=== PATIENT | male | born 1970 | race Caucasian/White ===

== ENCOUNTER 2023-06-28 12:24 | Emergency (ER) | payer OTHER ==
--- NOTE | 2023-06-28 12:25 | ERPHSYRPT ---
- History of Present Illness Time Seen by Provider: 06/28/23 12:40 Historian: patient, family Exam Limitations: no limitations Physician History: This is an obese 53-year-old white male patient who has no documented coronary artery disease but does have a history of hypertension and was seen by orthopedic services approximately 5 days ago for drainage of fluid from a knee and in fusion of steroid medication. In the days following, the patient did feel little flushed and noticed some sweating. A few days ago he noticed some left chest pressure. It is localized and nonradiating.. It resolved on its own. However in the last couple of days, it has been more frequent and today more constant. He states it is not a pain. He does not have associated shortness of breath. The steroid injection is new to him. He was also placed on meloxicam and this is a new medication for him as well. He denies fever. He denies cough. He has no abdominal pain Activities at Onset: none Quality: pressure (Left anterior chest) Location: other Chest Pain Radiation: no radiation (Left anterior chest) Severity of Pain-Max: mild Severity of Pain-Current: mild Modifying Factors: Improves With: nothing Associated Symptoms: denies symptoms Prior Chest Pain/Cardiac Workup: no prior chest pain Nitro Today/Relief: no nitro taken today Aspirin Treatment Today: no aspirin today Allergies/Adverse Reactions: No Known Drug Allergies Allergy (Verified 06/28/23 12:37) Home Medications: Lisinopril/Hydrochlorothiazide [Lisinopril-Hctz 20-12.5 mg Tab] 1 tab PO DAILY 06/28/23 [History] Meloxicam 15 mg [Meloxicam 15 MG] 15 mg PO DAILY 06/28/23 [History] Hx Tetanus, Diphtheria Vaccination/Date Given: Yes (2006) Hx Influenza Vaccination/Date Given: No Hx Pneumococcal Vaccination/Date Given: No Travel Risk - International Travel Have you traveled outside of the country in past 3 weeks: No - Coronavirus Screening Are you exhibiting any of the following symptoms?: No Close contact with a COVID-19 positive Pt in past 14-21 Days: No - Review of Systems Constitutional: No Symptoms Eyes: No Symptoms Ears, Nose, & Throat: No Symptoms Respiratory: No Symptoms Cardiac: Chest Pain (Left anterior chest pressure) Abdominal/Gastrointestinal: No Symptoms Genitourinary Symptoms: No Symptoms Musculoskeletal: No Symptoms Skin: No Symptoms Neurological: No Symptoms Psychological: No Symptoms Endocrine: No Symptoms Hematologic/Lymphatic: No Symptoms Immunological/Allergic: No Symptoms All Other Systems: Reviewed and Negative - Past Medical History Pertinent Past Medical History: No - Past Surgical History Past Surgical History: Yes Musculoskeletal: Orthopedic Surgery Other Surgical History: LEFT ANKLE,RIGHT KNEE - Social History Smoking Status: Never smoker Exposure to second hand smoke: No Drug Use: none Patient Lives Alone: No - Nursing Vital Signs Nursing Vital Signs: Initial Vital Signs Temperature 98.9 F 06/28/23 12:28 Pulse Rate 65 06/28/23 12:28 Respiratory Rate 18 06/28/23 12:28 Blood Pressure 101/66 06/28/23 12:28 O2 Sat by Pulse Oximetry 96 06/28/23 12:28 Pain Scale Pain Intensity 0 - Physical Exam General Appearance: no apparent distress, alert, obese Eye Exam: PERRL/EOMI, eyes nml inspection Ears, Nose, Throat Exam: normal ENT inspection, moist mucous membranes Neck Exam: normal inspection, non-tender, supple, full range of motion Respiratory Exam: normal breath sounds, lungs clear, airway intact, No chest ten derness, No respiratory distress Cardiovascular Exam: regular rate/rhythm, normal heart sounds, normal peripheral pulses Gastrointestinal/Abdomen Exam: soft, normal bowel sounds, No tenderness Rectal Exam: not done Extremity Exam: normal inspection, normal range of motion, pelvis stable Neurologic Exam: alert, oriented x 3, cooperative, 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, normal mood/affect, nml cerebellar function, nml station & gait, sensation nml Skin Exam: normal color, warm, dry Lymphatic Exam: No adenopathy SpO2 Interpretation: normal O2 Delivery: Room Air - Course Nursing assessment & vital signs reviewed: Yes EKG Interpreted by Me: RATE (67), Sinus Rhythm, NORMAL AXIS, NORMAL INTERVALS, NORMAL QRS, NORMAL ST-T, Other (No acute ischemic changes on today's twelve-lead EKG) Ordered Tests: Active Orders 24 hr Category Date Time Status EKG-ER Only STAT Care 06/28/23 12:26 Active IV Insertion STAT Care 06/28/23 12:26 Active Pulse Oximetry (ED) STAT Care 06/28/23 12:26 Active CHEST 1 VIEW (PORTABLE) Stat Exams 06/28/23 12:26 Completed CBC W DIFF Stat Lab 06/28/23 12:36 Completed CMP Stat Lab 06/28/23 12:36 Completed D-DIMER QUANTITATIVE Stat Lab 06/28/23 12:36 Completed PROTIME WITH INR Stat Lab 06/28/23 12:36 Completed TROPONIN Q4H Lab 06/28/23 12:36 Completed TROPONIN Q4H Lab 06/28/23 16:30 Ordered TROPONIN Q4H Lab 06/28/23 20:30 Ordered Medication Summary Discontinued Medications Generic Name Dose Route Start Last Admin Trade Name Alejandro PRN Reason Stop Dose Admin Aspirin 324 mg 06/28/23 12:26 06/28/23 12:31 Aspirin 81 Mg Tab.Chew PO 06/28/23 12:27 324 mg STAT ONE Administration Aspirin Confirm 06/28/23 12:32 Aspirin 81 Mg Tab.Chew Administered 06/28/23 12:33 Dose 324 mg .ROUTE .STK-MED ONE Lab/Rad Data: Laboratory Result Diagrams 06/28/23 12:36 06/28/23 12:36 Laboratory Results 06/28/23 06/28/23 06/28/23 Range/Units 12:36 12:36 12:36 WBC (4.0-10.5) x10^3/uL RBC (4.1-5.6) x10^6/uL Hgb (12.5-18.0) g/dL Hct (42-50) % MCV (78-100) fL MCH (26-32) pg MCHC (32-36) g/dL RDW (11.5-14.0) % Plt Count (150-450) x10^3/uL MPV (7.5-11.0) fL Gran % (36.0-66.0) % Immature Gran % (Auto) (0.00-0.4) % Nucleat RBC Rel Count (0.00-0.1) % Eos # (Auto) (0-0.5) x10^3/uL Immature Gran # (Auto) (0.00-0.03) x10^3u/L Absolute Lymphs (auto) (1.0-4.6) x10^3/uL Absolute Monos (auto) (0.0-1.3) x10^3/uL Absolute Nucleated RBC (0.00-0.01) x10^3u/L Lymphocytes % (24.0-44.0) % Monocytes % (0.0-12.0) % Eosinophils % (0.00-5.0) % Basophils % (0.0-0.4) % Absolute Granulocytes (1.4-6.9) x10^3/uL Basophils # (0-0.4) x10^3/uL PT 10.6 (9.4-12.5) SECONDS INR 0.97 (0.8-3.0) D-Dimer 0.31 (0.0-0.50) mg/L Sodium 140 (137-145) mmol/L Potassium 3.9 (3.5-5.1) mmol/L Chloride 103 (98-107) mmol/L Carbon Dioxide 29 (22-30) mmol/L Anion Gap 12.0 (5-15) MEQ/L BUN 22 H (9-20) mg/dL Creatinine 0.83 (0.66-1.25) mg/dL Estimated GFR > 60.0 ML/MIN Glucose 100 (74-106) mg/dL Calcium 9.3 (8.4-10.2) mg/dL Total Bilirubin 0.50 (0.2-1.3) mg/dL AST 23 (17-59) U/L ALT 36 (0-50) U/L Alkaline Phosphatase 74 (38-126) U/L Troponin I < 0.012 (0.000-0.034) ng/mL Serum Total Protein 7.4 (6.3-8.2) g/dL Albumin 4.3 (3.5-5.0) g/dL 06/28/23 Range/Units 12:36 WBC 15.2 H (4.0-10.5) x10^3/uL RBC 5.01 (4.1-5.6) x10^6/uL Hgb 14.4 (12.5-18.0) g/dL Hct 42.7 (42-50) % MCV 85.2 (78-100) fL MCH 28.7 (26-32) pg MCHC 33.7 (32-36) g/dL RDW 12.9 (11.5-14.0) % Plt Count 289 (150-450) x10^3/uL MPV 11.6 H (7.5-11.0) fL Gran % 66.4 H (36.0-66.0) % Immature Gran % (Auto) 1.5 H (0.00-0.4) % Nucleat RBC Rel Count 0.0 (0.00-0.1) % Eos # (Auto) 0.16 (0-0.5) x10^3/uL Immature Gran # (Auto) 0.23 H (0.00-0.03) x10^3u/L Absolute Lymphs (auto) 3.34 (1.0-4.6) x10^3/uL Absolute Monos (auto) 1.34 H (0.0-1.3) x10^3/uL Absolute Nucleated RBC 0.00 (0.00-0.01) x10^3u/L Lymphocytes % 22.0 L (24.0-44.0) % Monocytes % 8.8 (0.0-12.0) % Eosinophils % 1.1 (0.00-5.0) % Basophils % 0.2 (0.0-0.4) % Absolute Granulocytes 10.07 H (1.4-6.9) x10^3/uL Basophils # 0.03 (0-0.4) x10^3/uL PT (9.4-12.5) SECONDS INR (0.8-3.0) D-Dimer (0.0-0.50) mg/L Sodium (137-145) mmol/L Potassium (3.5-5.1) mmol/L Chloride (98-107) mmol/L Carbon Dioxide (22-30) mmol/L Anion Gap (5-15) MEQ/L BUN (9-20) mg/dL Creatinine (0.66-1.25) mg/dL Estimated GFR ML/MIN Glucose (74-106) mg/dL Calcium (8.4-10.2) mg/dL Total Bilirubin (0.2-1.3) mg/dL AST (17-59) U/L ALT (0-50) U/L Alkaline Phosphatase (38-126) U/L Troponin I (0.000-0.034) ng/mL Serum Total Protein (6.3-8.2) g/dL Albumin (3.5-5.0) g/dL - Progress Progress: improved, re-examined Air Movement: good Progress Note: 06/28/23 13:19 This patient's medical issue is 1 of moderate complexity. The level of complexity in the work-up performed is based on review of the patient's past medical history, review the patient's medication list, review the patient's drug allergy list, history of present illness and physical findings on examination. This patient's work-up includes placement of an intravenous line, provide the patient with 324 mg of baby aspirin orally, twelve-lead EKG, troponin level, D- dimer level, CBC, CMP and chest x-ray. 06/28/23 13:30 Chest x-ray was interpreted by the radiologist and I reviewed the impression. The study results show a nonacute chest. 06/28/23 13:50 I did review and interpret the patient's laboratory data results. Patient does have a leukocytosis. This could be secondary to recent injection of steroids. He has not had a fever. He has not had a cough. His chest x-ray is free from any acute cardiopulmonary process. I will hold on prescribing any type of antibiotics at this time. Patient's D-dimer and troponin level are within normal limits and the twelve-lead EKG does not show an acute ischemia. Blood Culture(s) Obtained: No Antibiotics given: No Counseled pt/family regarding: lab results, diagnosis, need for follow-up, rad results Medical Desision Making - Diagnostic Testing Diagnostic test were ordered, analyzed, and reviewed by me: Yes Radiological Interpretation: Reviewed by me, Teleradiologist Report - Risk of complications Minimal Risk: Minimal risk of morbidity - Departure Departure Disposition: Home Clinical Impression: Nonspecific chest pain, Leukocytosis, unspecified Condition: Stable Critical Care Time: No Referrals: YOANDY MCCABE MD [Primary Care Provider] - Follow up/PCP as directed Additional Instructions: Take your medication as prescribed. Call your primary care provider today, 06/28/2023, to arrange a follow-up appointment date and time for further evaluation and management.
[2023-06-28] MEDS: BABY ASPIRIN 81 MG CHEW PO ONE (12:31)
[2023-06-28] MEDS ORDERED: BABY ASPIRIN 81 MG CHEW ONE (12:32)
[2023-06-28 12:37] VITALS: TEMP 98.9
--- NOTE | 2023-06-28 13:03 | XRAY ---
Indication: Chest pain. Comparison: None Portable chest inflated and clear. Heart not enlarged for AP portable technique. Bony thorax intact with mild degenerative changes. Impression: Nonacute chest.
[2023-06-28 13:18] LABS: Absolute Neutrophil Ct (ANC) 10.07 x10^3/uL (1.4-6.9); BASOPHIL % 0.2 % (0.0-0.4); Basophil (Absolute #) 0.03 x10^3/uL (0-0.4); Eosinophil % 1.1 % (0.00-5.0); Eosinophil (Absolute #) 0.16 x10^3/uL (0-0.5); Hematocrit 42.7 % (42-50); Hemoglobin 14.4 g/dL (12.5-18.0); IMMATURE GRAN # 0.23 x10^3u/L (0.00-0.03); IMMATURE GRAN % 1.5 % (0.00-0.4); Lymphocyte (Absolute #) 3.34 x10^3/uL (1.0-4.6); Mean Cell Volume 85.2 fL (78-100); Mean Corpuscular Hemoglobin 28.7 pg (26-32); Mean Corpuscular Hgb Concent. 33.7 g/dL (32-36); Mean Platelet Volume 11.6 fL (7.5-11.0); Monocyte (Absolute #) 1.34 x10^3/uL (0.0-1.3); Monocytes % 8.8 % (0.0-12.0); Neutrophil % 66.4 % (36.0-66.0); Platelet Count 289 x10^3/uL (150-450); Red Blood Count 5.01 x10^6/uL (4.1-5.6); Red Cell Distribution Width 12.9 % (11.5-14.0); White Blood Count 15.2 x10^3/uL (4.0-10.5)
[2023-06-28 13:31] LABS: ALBUMIN 4.3 g/dL (3.5-5.0); ALKALINE PHOSPHATASE 74 U/L (38-126); BLOOD UREA NITROGEN 22 mg/dL (9-20); CHLORIDE 103 mmol/L (98-107); Calcium 9.3 mg/dL (8.4-10.2); Carbon Dioxide 29 mmol/L (22-30); Creatinine 1 0.83 mg/dL (0.66-1.25); EST GLOMERULAR FILTRATION RATE > 60.0 ML/MIN; Glucose 100 mg/dL (74-106); Potassium 3.9 mmol/L (3.5-5.1); SGOT/AST 23 U/L (17-59); SGPT/ALT 36 U/L (0-50); SODIUM 140 mmol/L (137-145); Total Protein 7.4 g/dL (6.3-8.2)
[2023-06-28 13:32] VITALS: BP 118/74; PULSE 63; RESP 13; O2SAT 97
[2023-06-28 13:32] LABS: D-DIMER QUANTITATIVE 0.31 mg/L (0.0-0.50); INR 0.97 (0.8-3.0); PROTIME 10.6 SECONDS (9.4-12.5)
== END 2023-06-28 14:00 | disposition home or self-care (01) ==
LOC: ED 12:24
DX: R07.89 Other chest pain (principal); D72.829 Elevated white blood cell count, unspecified; I10 Essential (primary) hypertension; Z79.899 Other long term (current) drug therapy
CPT/HCPCS: 36000; 36415; 71045; 80053; 84484; 85025; 85379; 85610; 93005; 94760; 99284; A9270-GY

== ENCOUNTER 2023-08-31 06:42 | Day surgery (SDC) | payer OTHER ==
[2023-08-31] MEDS ORDERED: Lactated Ringers 1,000 ML IV SCH (07:00)
[2023-08-31] MEDS ORDERED: Versed 2 MG/2 ML Injection ONE (08:01)
[2023-08-31] MEDS ORDERED: DIPRIVAN 200 MG/20 ML IV ONE ×2 (08:01→08:16)
[2023-08-31] MEDS ORDERED: Xylocaine-Mpf 2% 5 Ml Vial ONE (08:01)
[2023-08-31 08:57] VITALS: RESP 16
[2023-08-31 09:09] VITALS: BP 133/86; PULSE 74; TEMP 97.2; O2SAT 98
--- NOTE | 2023-08-31 09:14 | OP ---
SURGERY DATE/TIME: 08/31/2023 0808 PREOPERATIVE DIAGNOSIS: Screening colonoscopy. POSTOPERATIVE DIAGNOSIS: Transverse colon polyp. PROCEDURE: Colonoscopy. SURGEON: Vijay Correa M.D. ANESTHESIA: MAC by Justo Merritt CRNA. ESTIMATED BLOOD LOSS: Minimal. SPECIMENS: Hot forceps polypectomy from the transverse colon. DESCRIPTION OF PROCEDURE: After informed written consent was obtained, the patient was taken to the endoscopy suite. He was placed in left lateral decubitus position and anesthesia was titrated to desired level of consciousness. Digital rectal exam showed normal sphincter tone and no internal lesions. The scope was inserted into the rectum and sequentially the entire colonic mucosa was traversed. The level of cecum was reached and verified with direct visualization of the ileocecal valve. Upon withdrawal careful mucosal inspection revealed a pedunculated sessile polyp in the transverse colon which is grasped with forceps cauterized and removed in its entirety with good hemostasis and complete destruction and removal of the lesion. Upon withdrawal, there were no other mucosal abnormalities encountered. Prep was noted to be good. Prior to withdrawal retroflexion was performed and showed no internal lesions. The scope was removed. The patient was transferred to the recovery room in good condition. He has been instructed to follow up in a week for pathology results.
== END 2023-08-31 09:17 | disposition home or self-care (01) ==
LOC: SDC 06:42
PROVIDERS: ATTEND Family Medicine
DX: Z12.11 Encounter for screening for malignant neoplasm of colon (principal); D12.3 Benign neoplasm of transverse colon
CPT/HCPCS: J2250; J2704

== ENCOUNTER 2024-06-12 20:05 | Emergency (ER) | payer OTHER ==
[2024-06-12 20:42] VITALS: TEMP 96.7
[2024-06-12] MEDS ORDERED: Sodium Chloride 0.9% 1000 ML 1,000 ML ONE (21:56)
[2024-06-12] MEDS ORDERED: TORAdol 30 mg Injection ONE (21:56)
[2024-06-12] MEDS: TORAdol 30 mg Injection IV ONE (21:58)
[2024-06-12 21:59] LABS: Absolute Neutrophil Ct (ANC) 5.72 x10^3/uL (1.78-5.38); BASOPHIL % 0.6 % (0.2-1.2); Basophil (Absolute #) 0.06 x10^3/uL (0.01-0.08); Eosinophil % 3.9 % (0.8-7.0); Eosinophil (Absolute #) 0.39 x10^3/uL (0.04-0.54); Hematocrit 39.4 % (40.1-51.0); Hemoglobin 13.5 g/dL (13.7-17.5); IMMATURE GRAN # 0.04 x10^3u/L (0.001-0.031); IMMATURE GRAN % 0.4 % (0.001-0.429); Lymphocyte (Absolute #) 2.76 x10^3/uL (1.32-3.57); Lymphocytes % 27.8 % (21.8-53.1); Mean Cell Volume 85.3 fL (79.0-92.2); Mean Corpuscular Hemoglobin 29.2 pg (25.7-32.2); Mean Corpuscular Hgb Concent. 34.3 g/dL (32.3-36.5); Mean Platelet Volume 11.5 fL (9.4-12.4); Monocyte (Absolute #) 0.96 x10^3/uL (0.30-0.82); Monocytes % 9.7 % (5.3-12.2); Neutrophil % 57.6 % (34.0-67.9); Platelet Count 255 x10^3/uL (163-337); Red Blood Count 4.62 x10^6/uL (4.63-6.08); Red Cell Distribution Width 13.1 % (11.6-14.4); White Blood Count 9.9 x10^3/uL (4.23-9.07)
[2024-06-12] MEDS: Sodium Chloride 0.9% 1000 ML 1,000 ML IV STA (21:59)
[2024-06-12 22:06] LABS: Appearance Clear (Clear); Bacteria None Seen /HPF (None Seen); Bilirubin Negative (Negative); Blood Negative (Negative); Epithelial Cells None Seen /HPF (None Seen); Glucose, Urine Negative (Negative); Hyaline Casts NONE SEEN /LPF (0-2); Ketones Trace (Negative); Leukocyte Esterase Negative (Negative); Nitrite Negative (Negative); Ph 5.5 (4.6-8.0); Protein,Urine Dip Negative (Negative); RBC 0-2 /HPF (0-5); Specific Gravity 1.025 (1.005-1.030); WBC 0-2 /HPF (0-5)
[2024-06-12 22:08] LABS: ADD URINE CULTURE? NO (NO)
[2024-06-12 22:10] LABS: ALBUMIN 4.3 g/dL (3.5-5.0); ANION GAP 11.2 MEQ/L (5-15); BILIRUBIN,TOTAL 0.5 mg/dL (0.2-1.3); Calcium 9.6 mg/dL (8.4-10.2); Creatinine 1 0.86 mg/dL (0.66-1.25); EST GLOMERULAR FILTRATION RATE 104.2 ML/MIN; Potassium 3.8 mmol/L (3.5-5.1); Total Protein 7.3 g/dL (6.3-8.2)
--- NOTE | 2024-06-12 23:46 | XRAY ---
CLINICAL HISTORY: flank pain COMPARISON: none - TECHNIQUE: Contiguous axial images were obtained from the level of the diaphragm to the pubic symphysis without intravenous or oral contrast. Coronal and sagittal reconstructions were likewise performed and indicated to increase the sensitivity for detecting clinically relevant pathology. CT scan was performed according to ALARA (as low as reasonably achievable) FINDINGS: The visualised lung bases are clear. Evaluation of the abdominal and pelvic visceral organs is limited without intravenous contrast. The unenhanced liver, pancreas, and adrenal glands are grossly unremarkable. The gallbladder is present. Foci of calcification is seen in the spleen, measuring around 1-3 mm. The kidneys are normal in size and attenuation. There is presence of 3-5 mm non-obstructive left renal calculi. Bilateral perinpehric fat stranding is seen. The ureters are normal in calibre.Calculus of size approx 5 mm noted in right distal ureter approximately 1-2 cm proximal toVesicoureteric junction. No significant hydroureteronephrosis in present scan. No adenopathy or fluid collections are seen. No evidence of focal or diffuse bowel wall thickening or evidence of bowel obstruction is seen. The appendix is visualised in the right lower quadrant and appears within normal limits. The aorta is normal in calibre. The urinary bladder is normal in contour. Pelvic viscera are grossly unremarkable. No aggressive appearing osseous lesions are identified. Degenerative changes in the visualized spine. Grade I anterolisthesis of L4 over L5 is seen IMPRESSION: 1. Left non-obstructive renal calculi 2. Right distal most ureteric calculus without significant hydroureteronephrosis. 3. Grade I anterolisthesis of L4 over L5 Electronically Signed by: Duncan Shetty MD. (06/12/2024 23:41:21 EDT)
[2024-06-13 00:03] VITALS: BP 108/58; PULSE 68; RESP 16
--- NOTE | 2024-06-13 00:04 | ERPHSYRPT ---
- History of Present Illness Time Seen by Provider: 06/12/24 21:45 Historian: patient Exam Limitations: no limitations Patient Subjective Stated Complaint: pt states that he thinks he has a kidney stone. pt states the pain does not feel the same as before. Triage Nursing Assessment: pt ambulated into the er; pt is axo x4; c/o rt lower back pain; pt state pain radiates to RLQ; no tenderness to rt flank region; active bowel sounds in all quads; abd large, soft, nontender; c/o nausea, denies vomiting; skin PDW; no respiratory distress present; vitals wnl Physician History: 54-year-old male history of kidney stones presents to emergency department for evaluation of right sided flank pain radiating into the right groin area. Symptoms started earlier in the day. Pain described as a sharp sensation that comes and goes in waves. No trauma no fever no obvious hematuria. Symptoms are similar to his previous kidney stone. No associated nausea vomiting no diarrhea no rash. Patient otherwise feels well. at bedside. They voiced no other complaints or concerns at this time. Portions of this note were created with voice recognition technology. There may be grammatical, spelling, punctuation or sound alike errors Timing/Duration: today Activities at Onset: none Quality: aching Abdominal Pain Onset Location: flank (Right flank) Pain Radiation: groin, other (Radiated to right groin) Severity of Pain-Max: moderate Severity of Pain-Current: mild Modifying Factors: Improves With: nothing Associated Symptoms: denies symptoms Previous symptoms: same symptoms as today Allergies/Adverse Reactions: No Known Drug Allergies Allergy (Verified 06/12/24 20:30) Home Medications: Lisinopril/Hydrochlorothiazide [Lisinopril-Hctz 20-12.5 mg Tab] 1 tab PO DAILY 06/28/23 [History] Meloxicam 15 mg [Meloxicam 15 MG] 15 mg PO DAILY 06/28/23 [History] Hx Tetanus, Diphtheria Vaccination/Date Given: No (2006, unknown) Hx Influenza Vaccination/Date Given: No Hx Pneumococcal Vaccination/Date Given: No Immunizations Up to Date: No Travel Risk - International Travel Have you traveled outside of the country in past 3 weeks: No - Emerging Infectious Disease Are you exhibiting symptoms associated with any current EIDs: No - Review of Systems Constitutional: No Symptoms, No Fever, No Chills Eyes: No Symptoms Ears, Nose, & Throat: No Symptoms Respiratory: No Symptoms, No Cough, No Dyspnea Cardiac: No Symptoms, No Chest Pain, No Edema, No Syncope Abdominal/Gastrointestinal: No Symptoms, No Abdominal Pain, No Nausea, No Vomiting, No Diarrhea Genitourinary Symptoms: No Symptoms, No Dysuria Musculoskeletal: No Symptoms, No Back Pain, No Neck Pain Skin: No Symptoms, No Rash Neurological: No Symptoms, No Dizziness, No Focal Weakness, No Sensory Changes Psychological: No Symptoms Endocrine: No Symptoms Hematologic/Lymphatic: No Symptoms Immunological/Allergic: No Symptoms All Other Systems: Reviewed and Negative - Past Medical History Pertinent Past Medical History: Yes Neurological History: No Pertinent History ENT History: No Pertinent History Cardiac History: Hypertension Respiratory History: No Pertinent History Endocrine Medical History: No Pertinent History Musculoskeletal History: No Pertinent History GI Medical History: No Pertinent History History: No Pertinent History Psycho-Social History: No Pertinent History Male Reproductive Disorders: No Pertinent History - Past Surgical History Past Surgical History: Yes Neuro Surgical History: No Pertinent History Cardiac: No Pertinent History Respiratory: No Pertinent History Gastrointestinal: No Pertinent History Genitourinary: No Pertinent History Musculoskeletal: Orthopedic Surgery Male Surgical History: No Pertinent History Other Surgical History: LEFT ANKLE,RIGHT KNEE - Social History Smoking Status: Never smoker Exposure to second hand smoke: No Drug Use: none Patient Lives Alone: No - Social Determinants of Health Will the patient participate in the screening: Yes Do you worry about a steady place to live?: No Do you have any problems with any of the following?: No known problems In the past 12 months,have you had to go without utilities?: No Transportation Issues: No Has anyone in your support network made you feel unsafe?: No Have you or anyone in your house had to go without enough: No - Nursing Vital Signs Nursing Vital Signs: Initial Vital Signs Temperature 96.7 F 06/12/24 20:31 Pulse Rate 94 H 06/12/24 20:31 Respiratory Rate 20 06/12/24 20:31 Blood Pressure 121/69 06/12/24 20:31 O2 Sat by Pulse Oximetry 98 06/12/24 20:31 Pain Scale Pain Intensity [Right Lower 7 Back] Pain Intensity 0 - Physical Exam General Appearance: no apparent distress, alert Eye Exam: PERRL/EOMI, eyes nml inspection Ears, Nose, Throat Exam: normal ENT inspection Neck Exam: normal inspection, full range of motion Respiratory Exam: normal breath sounds, lungs clear, airway intact, No respiratory distress Cardiovascular Exam: regular rate/rhythm, normal heart sounds Gastrointestinal/Abdomen Exam: soft, other (Some tenderness to right flank. No CVA tenderness), No tenderness, No mass Back Exam: normal inspection, normal range of motion, No CVA tenderness, No vertebral tenderness Extremity Exam: normal inspection, normal range of motion, pelvis stable Neurologic Exam: alert, oriented x 3, cooperative, normal mood/affect, nml cere bellar function, sensation nml, No motor deficits Skin Exam: normal color, warm, dry Lymphatic Exam: No adenopathy SpO2 Interpretation: normal SpO2: 96 O2 Delivery: Room Air - Course Nursing assessment & vital signs reviewed: Yes - CT Exams Abdomen/Pelvis CT Interpretation: Tele-radiologist Report (Left nephrolithiasis, bilateral perinephric fat stranding. Right ureteral lithiasis, 5 mm right distal kidney stone) Ordered Tests: Active Orders 24 hr Category Date Time Status IV Insertion STAT Care 06/12/24 21:52 Active ABDOMEN AND PELVIS W/0 CONTRAS [CT] Stat Exams 06/12/24 21:53 Completed CBC W DIFF Stat Lab 06/12/24 21:30 Completed CMP Stat Lab 06/12/24 21:30 Completed UA W/RFX UR CULTURE Stat Lab 06/12/24 21:50 Completed Medication Summary Discontinued Medications Generic Name Dose Route Start Last Admin Trade Name Freq PRN Reason Stop Dose Admin Sodium Chloride 1,000 mls @ 999 mls/hr 06/12/24 21:52 06/12/24 23:02 Sodium Chloride 0.9% 1000 Ml IV 06/12/24 22:52 Infused .Q1H1M STA Infusion Sodium Chloride Confirm 06/12/24 21:56 Sodium Chloride 0.9% 1000 Ml Administered 06/12/24 21:57 Dose 1,000 mls @ ud .ROUTE .STK-MED ONE Ketorolac Tromethamine 30 mg 06/12/24 21:52 06/12/24 21:58 Ketorolac Tromethamine 30 Mg/Ml Inj IV 06/12/24 21:53 30 mg STAT ONE Administration Ketorolac Tromethamine Confirm 06/12/24 21:56 Ketorolac Tromethamine 30 Mg/Ml Inj Administered 06/12/24 21:57 Dose 30 mg .ROUTE .STK-MED ONE Lab/Rad Data: Laboratory Result Diagrams 06/12/24 21:30 06/12/24 21:30 Laboratory Results 06/12/24 06/12/24 06/12/24 Range/Units 21:50 21:30 21:30 WBC 9.9 H (4.23-9.07) x10^3/uL RBC 4.62 L (4.63-6.08) x10^6/uL Hgb 13.5 L (13.7-17.5) g/dL Hct 39.4 L (40.1-51.0) % MCV 85.3 (79.0-92.2) fL MCH 29.2 (25.7-32.2) pg MCHC 34.3 (32.3-36.5) g/dL RDW 13.1 (11.6-14.4) % Plt Count 255 (163-337) x10^3/uL MPV 11.5 (9.4-12.4) fL Gran % 57.6 (34.0-67.9) % Immature Gran % (Auto) 0.4 (0.001-0.429) % Nucleat RBC Rel Count 0.0 (0.00-0.2) % Eos # (Auto) 0.39 (0.04-0.54) x10^3/uL Immature Gran # (Auto) 0.04 H (0.001-0.031) x10^3u/L Absolute Lymphs (auto) 2.76 (1.32-3.57) x10^3/uL Absolute Monos (auto) 0.96 H (0.30-0.82) x10^3/uL Absolute Nucleated RBC 0.00 (0.00-0.012) x10^3u/L Lymphocytes % 27.8 (21.8-53.1) % Monocytes % 9.7 (5.3-12.2) % Eosinophils % 3.9 (0.8-7.0) % Basophils % 0.6 (0.2-1.2) % Absolute Granulocytes 5.72 H (1.78-5.38) x10^3/uL Basophils # 0.06 (0.01-0.08) x10^3/uL Sodium 139 (135-145) mmol/L Potassium 3.8 (3.5-5.1) mmol/L Chloride 104 (98-107) mmol/L Carbon Dioxide 28 (22-30) mmol/L Anion Gap 11.2 (5-15) MEQ/L BUN 16 (9-20) mg/dL Creatinine 0.86 (0.66-1.25) mg/dL Estimated GFR 104.2 ML/MIN Glucose 121 H (74-106) mg/dL Calcium 9.6 (8.4-10.2) mg/dL Total Bilirubin 0.50 (0.2-1.3) mg/dL AST 40 (17-59) U/L ALT 34 (0-50) U/L Alkaline Phosphatase 76 (38-126) U/L Serum Total Protein 7.3 (6.3-8.2) g/dL Albumin 4.3 (3.5-5.0) g/dL Urine Color Yellow (Yellow) Urine Appearance Clear (Clear) Urine pH 5.5 (4.6-8.0) Ur Specific [place] 1.025 (1.005-1.030) Urine Protein Negative (Negative) Urine Glucose (UA) Negative (Negative) mg/dL Urine Ketones Trace A (Negative) Urine Blood Negative (Negative) Urine Nitrite Negative (Negative) Urine Bilirubin Negative (Negative) Urine Urobilinogen 1.0 A (0.2) mg/dL Ur Leukocyte Esterase Negative (Negative) U Hyaline Cast (Auto) NONE SEEN (0-2) /LPF Urine Microscopic RBC 0-2 (0-5) /HPF Urine Microscopic WBC 0-2 (0-5) /HPF Ur Epithelial Cells None Seen (None Seen) /HPF Urine Bacteria None Seen (None Seen) /HPF Urine Culture Reflexed NO (NO) - Progress Progress: improved Progress Note: 54-year-old male presents to emergency department for evaluation of pain to his right flank. Pain started acutely. Pain comes and goes in waves. Physical exam reveals some right flank tenderness. Overlying soft tissue intact. No signs of trauma. Urinalysis negative for UTI. Kidney function within normal limits. CT abdomen pelvis reveals a obstructing 5 mm right distal ureteral stone just approximately once inch away from the bladder. Bilateral perinephric fat stranding and left ureteral lithiasis observed as well. Incidental L4-L5 grade 1 anterolisthesis as well. No active back pain at this time. Patient referred to Dr. Mars, urologist for follow-up. A prescription for Toradol, tamsulosin and Olmito forwarded to patient's pharmacy patient reassessed. He is currently asymptomatic. Urine screen provided to hopefully catch the obstru cting stone once it passes. This will allow analysis of the stone hopefully to further prevent further stone formation. at bedside. Questions answered. They voiced no other complaints or concerns at this time. Will discharge home. Portions of this note were created with voice recognition technology. There may be grammatical, spelling, punctuation or sound alike errors Complexity problem addressed is moderate acute complicated. No critical care time. Complexity of data reviewed and analyzed is moderate. Test ordered test reviewed results analyzed and correlated clinically with history and physical exam. Risk of complication and or risk of morbidity/mortality patient managem ent is moderate. Tamsulosin, Olmito and Toradol forwarded to patient's pharmacy. Vital stable. Time spent to discharge patient approximately 20 minutes. No social determinants of health present to impede follow-up. Portions of this note were created with voice recognition technology. There may be grammatical, spelling, punctuation or sound alike errors 06/13/24 00:14 Counseled pt/family regarding: lab results, diagnosis, need for follow-up, rad results - Departure Departure Disposition: Home Clinical Impression: Ureterolithiasis, Left nephrolithiasis, Perinephric fat stranding, L4-L5 grade 1 anterolisthesis Condition: Stable Critical Care Time: No Referrals: YOANDY MCCABE MD [Primary Care Provider] - Follow up/PCP as directed JEFF MARS [COURTESY STAFF] - Follow up/PCP as directed Additional Instructions: Discharge/Care Plan BRENNA PERALES was seen on 06/13/24 in the Emergency Room. The patient was counseled regarding Diagnosis,Lab results, Imaging studies, need for follow up and when to return to the Emergency Room. Prescriptions given: Discharge Note I have spoken with the patient and/or caregivers. I have explained the patient's condition, diagnosis and treatment plan based on the information available to me at this time. I have answered the patient's and/or caregiver's questions and addressed any concerns. The patient and/or caregivers have as good understanding of the patient's diagnosis, condition and treatment plan as can be expected at t his point. The vital signs have been stable. The patient's condition is stable and appropriate for discharge from the emergency department. The patient will pursue further outpatient evaluation with the primary care physician or other designated or consulting physician as outlined in the discharge instructions. The patient and/or caregivers are agreeable to this plan of care and follow-up instructions have been explained in detail. The patient and/or caregivers have received these instruction. The patient/and or caregivers are aware that any significant change in condition or worsening of symptoms should prompt an immediate return to this or the closest emergency department or call 911. Prescriptions: Hydrocodone/APAP 5/325 [Olmito 5/325 mg] 1 each PO Q6H PRN PRN #10 tablet MDD 4 PRN Reason: Pain Tamsulosin HCl 0.4 mg [Flomax 0.4 MG] 0.4 mg PO DAILY 14 Days #14 cap Ketorolac Trometh 10 mg Tab [TORAdol 10 MG TABLET] 10 mg PO TID 5 Days #15 tablet
[2024-06-13 00:05] VITALS: O2SAT 96
== END 2024-06-13 00:20 | disposition home or self-care (01) ==
LOC: ED 20:05
DX: N20.2 Calculus of kidney with calculus of ureter (principal); R93.429 Abnormal radiologic findings on diagnostic imaging of unspecified kidney; M43.16 Spondylolisthesis, lumbar region; R10.9 Unspecified abdominal pain; I10 Essential (primary) hypertension; Z87.442 Personal history of urinary calculi; Z79.891 Long term (current) use of opiate analgesic; Z79.899 Other long term (current) drug therapy
CPT/HCPCS: 36415; 74176; 80053; 81001; 85025; 96360; 96374; 99284; J1885

== ENCOUNTER 2024-07-01 09:31 | Emergency (ER) | payer OTHER ==
[2024-07-01 09:43] VITALS: PULSE 72; TEMP 97.5; O2SAT 100
--- NOTE | 2024-07-01 10:00 | ERPHSYRPT ---
- History of Present Illness Time Seen by Provider: 07/01/24 09:55 Source: patient Exam Limitations: no limitations Patient Subjective Stated Complaint: sciatica right sided back pain and radiates all the way to the toes, numbness from the knee down Triage Nursing Assessment: Pt brought self to the ER, hypertensive, rates pain as 04/27, hx of sciatica and was also in this ER a few weeks ago and was told that his L4 was out, pt has attempted exercises this week with no relief, pulses normal, skin n/wd, numbness below the right knee and to the toes, no difficulty breathing, appears to be in moderate pain Physician History: Patient has classic sciatica symptoms. He is had him before. He had a CT of his back done about 2 weeks ago. It showed a spondylolisthesis around L4. He now has pain in his sacroiliac area and it radiates down his right leg. It goes mainly from the knee down to the feet. He says that both sides of the feet are involve the medial and lateral aspect. He does not have saddle paresthesias or bowel or bladder incontinence. He does not have any acute cord symptoms. He is had sciatica in the past as this feels similar. He tried some Noble at home said that that helped minimally. The symptoms been going on for about 4 5 days. Walking makes symptoms worse resting in a comfortable position makes it better. Allergies/Adverse Reactions: No Known Drug Allergies Allergy (Verified 07/01/24 09:43) Home Medications: Lisinopril/Hydrochlorothiazide [Lisinopril-Hctz 20-12.5 mg Tab] 1 tab PO DAILY 06/28/23 [History] Meloxicam 15 mg [Meloxicam 15 MG] 15 mg PO DAILY 06/28/23 [History] Hx Tetanus, Diphtheria Vaccination/Date Given: No (2006, unknown) Hx Influenza Vaccination/Date Given: No Hx Pneumococcal Vaccination/Date Given: No Travel Risk - International Travel Have you traveled outside of the country in past 3 weeks: No - Emerging Infectious Disease Are you exhibiting symptoms associated with any current EIDs: No - Review of Systems Constitutional: No Symptoms Eyes: No Symptoms Ears, Nose, & Throat: Throat Swelling Cardiac: No Symptoms Abdominal/Gastrointestinal: No Symptoms Genitourinary Symptoms: No Symptoms - Past Medical History Pertinent Past Medical History: Yes Neurological History: No Pertinent History ENT History: No Pertinent History Cardiac History: Hypertension Respiratory History: No Pertinent History Endocrine Medical History: No Pertinent History Musculoskeletal History: No Pertinent History GI Medical History: No Pertinent History History: No Pertinent History Psycho-Social History: No Pertinent History Male Reproductive Disorders: No Pertinent History Other Medical History: sciatica - Past Surgical History Past Surgical History: Yes Neuro Surgical History: No Pertinent History Cardiac: No Pertinent History Respiratory: No Pertinent History Gastrointestinal: No Pertinent History Genitourinary: No Pertinent History Musculoskeletal: Orthopedic Surgery Male Surgical History: No Pertinent History Other Surgical History: LEFT ANKLE,RIGHT KNEE - Social History Smoking Status: Never smoker Exposure to second hand smoke: No Drug Use: none Patient Lives Alone: No - Social Determinants of Health Will the patient participate in the screening: Yes Do you worry about a steady place to live?: No Do you have any problems with any of the following?: No known problems In the past 12 months,have you had to go without utilities?: No Transportation Issues: No Has anyone in your support network made you feel unsafe?: No Have you or anyone in your house had to go without enough: No - Nursing Vital Signs Nursing Vital Signs: Initial Vital Signs Temperature 97.5 F 07/01/24 09:36 Pulse Rate 72 07/01/24 09:36 Blood Pressure 164/98 07/01/24 09:36 O2 Sat by Pulse Oximetry 100 07/01/24 09:36 Pain Scale Pain Intensity [Right Lower 8 Back] Pain Intensity 8 - Physical Exam General Appearance: no apparent distress Eye Exam: PERRL/EOMI Back Exam: other (Patient has tenderness in his low back on the right.) Extremity Exam: normal inspection, calf tenderness Neurologic Exam: other (No deficits in strength in either extremity on the lower. He has good feeling bilaterally but does have some paresthesia on the right.) Skin Exam: normal color, diaphoresis SpO2: 100 - Course Nursing assessment & vital signs reviewed: Yes - Progress Progress: unchanged Progress Note: 07/01/24 09:57 Patient was stable. On the differential was sciatica, herniated lumbar disc,. Patient does not tolerate steroids well. I am going to give him some Noble and some indomethacin as well as a work excuse. He is to follow-up with his primary doctor and return if symptoms worsen Medical Desision Making - Social Determinants of Health Pt's dx & treatment plan are significantly limited by SDOH: limited education - Diagnostic Testing Diagnostic test were ordered, analyzed, and reviewed by me: No - Departure Departure Disposition: Home Clinical Impression: Sciatica, right side Condition: Stable Critical Care Time: No Referrals: YOANDY MCCABE MD [Primary Care Provider] - Follow up/PCP as directed Instructions: Sciatica (DC) Forms: Work/School Release Form Prescriptions: Indomethacin 25 mg [Indocin 25 MG] 25 mg PO Q8H PRN PRN #30 cap PRN Reason: Pain
[2024-07-01 10:17] VITALS: BP 120/74
== END 2024-07-01 10:08 | disposition home or self-care (01) ==
LOC: ED 09:31
DX: M54.31 Sciatica, right side (principal); I10 Essential (primary) hypertension; Z79.899 Other long term (current) drug therapy
CPT/HCPCS: 99281

== ENCOUNTER 2024-09-04 13:35 | Day surgery (SDC) | payer OTHER ==
[2024-09-04] MEDS ORDERED: LIDOCAINE HCL 1% AMPUL 5 ML IJ ONE (13:36)
[2024-09-04] MEDS ORDERED: Sodium Chloride 0.9(Preservative Free) 10 ML IJ ONE (13:36)
[2024-09-04] MEDS ORDERED: Depo-Medrol 40 MG/ML IM ONE (13:36)
[2024-09-04] MEDS ORDERED: Decadron 4 MG INJ IV ONE (13:36)
[2024-09-04] MEDS ORDERED: DIPRIVAN 200 MG/20 ML IV ONE ×2 (15:10→15:23)
[2024-09-04] MEDS ORDERED: ROBINUL ONE (15:10)
--- NOTE | 2024-09-04 16:55 | XRAY ---
Indication: Lumbar DENTON. Intraoperative fluoroscopy provided for 10 seconds. Single lateral digital spot image submitted for interpretation demonstrates posterior needle tip projecting posterior to lumbosacral junction. Small amount of contrast injected for needle tip placement. Correlate with intraoperative findings/report.
--- NOTE | 2024-09-04 16:55 | XRAY ---
Indication: Right piriformis injection. Intraoperative fluoroscopy provided for 10 seconds. 2 digital spot image submitted for interpretation demonstrates posterior needle tip projecting over right piriformis. Small amount of contrast injected for needle tip placement. Correlate with intraoperative findings/report.
--- NOTE | 2024-09-04 17:05 | XRAY ---
10 seconds of fluoroscopy was used in surgery for a lumbar DENTON.
--- NOTE | 2024-09-04 17:05 | XRAY ---
10 seconds of fluoroscopy was used in surgery for a right piriformis injection.
== END 2024-09-04 15:52 | disposition home or self-care (01) ==
LOC: SDC-PAIN 13:35
PROVIDERS: ATTEND Psychiatry & Neurology Pain Medicine
DX: M54.16 Radiculopathy, lumbar region (principal); M79.18 Myalgia, other site
CPT/HCPCS: 72100; 72170; 77002; 77003; J1100; J2704